=== PATIENT | female | born 1985 | race Caucasian/White ===

== ENCOUNTER → 2018-03-12 11:49 | Outpatient (CLI) | payer MEDICAID, SELFPAY ==
[2018-03-12 15:23] LABS: Chlamydia Trachomatis by PCR Negative (Negative); Neisserai gonorrhoeae by PCR Negative (Negative); Probe Check PASS; Sample Adequacy Control PASS; Specimen Processing Control PASS
[2018-03-19 12:29] LABS: HPV Reflexed? NOT INDICATED
== END ==
PROVIDERS: Visit Provider Obstetrics & Gynecology
DX: Z12.4 Encounter for screening for malignant neoplasm of cervix (principal); Z11.3 Encounter for screening for infections with a predominantly sexual mode of transmission
CPT/HCPCS: 87491; 87591; 88175; G0145

== ENCOUNTER → 2018-04-09 10:28 | Outpatient (CLI) | payer MEDICAID, SELFPAY ==
[2018-04-09 13:50] LABS: Absolute Lymphocyte Count 0.86 X10^3/ul (0.83-4.51); Absolute Neutrophil Count 1.7 X10^3/uL (2.0-7.7); Basophil# 0.01 X10^3/uL; Basophil% 0.3 % (0-1); Color, Urine Yellow (Yellow); Eosinophil# 0.04 X10^3/uL; Eosinophils% 1.4 % (0-5); Glucose, Dipstick Normal (Normal); Hematocrit 35.3 % (37-47); Hemoglobin 11.7 g/dl (12.0-15.0); Ketone-Dipstick Negative (Negative); Leukocyte Esterase-Dipstick Negative /ul (Negative); Lymphocyte # 0.86 X10^3/ul (4.0); Lymphocyte % 29.4 % (19-41); Mean Corp Hgb Conc 33.1 g/gl (32-36); Mean Corpuscular Hgb 29.4 pg (27.0-32.0); Mean Corpuscular Volume 88.7 fL (81-99); Mean Platelet Vol. 9.8 fl (6.2-12.0); Monocyte# 0.29 X10^3/uL; Monocyte% 9.9 % (0-10); Neutrophil # 1.72 X10^3/uL (2.7-7.7); Neutrophil % 58.7 % (47-70); Nitrite-Dipstick Negative (Negative); Occult Blood-Urine Negative /ul (Negative); Platelet Count 286 K/mm3 (150-450); Protein-Dipstick 15 mg/dl (Negative); RBC Distribution Width CV 14.3 % (11.6-14.6); RBC Distribution Width SD 46.7 fl (35.1-43.9); Red Blood Count 3.98 M/mm3 (4.2-5.4); Urine Bilirubin Dipstick Negative (Negative); Urine Clarity Clear (Clear); Urine Urobilinogen Normal (Normal); White Blood Count 2.9 K/mm3 (4.4-11.0)
[2018-04-09 13:55] LABS: POSITIVE COUNT NO; POSITIVE DIFFERENTIAL NO; POSITIVE MORPHOLOGY NO
[2018-04-09 14:23] LABS: Thyroid Stim Hormone (TSH) 1.81 uIU/mL (0.358-3.74)
[2018-04-09 15:01] LABS: HIV - WCH Non-Reactive (Nonreactive); Rubella IgG 159.4 IU/mL
[2018-04-10 09:25] LABS: HEPATITIS B SURFACE AG Negative (Negative); Hep C Antibodies 0.1 s/co ratio (0.0-0.9)
[2018-04-16 00:18] LABS: Prenatal RPR NONREACTIVE (NONREACTIVE)
== END ==
PROVIDERS: Visit Provider Obstetrics & Gynecology
DX: Z34.82 Encounter for supervision of other normal pregnancy, second trimester (principal)
CPT/HCPCS: 36415; 81002; 84443; 85025; 86703; 86762; 86803; 87340

== ENCOUNTER → 2018-05-24 11:34 | Outpatient (CLI) | payer MEDICAID, SELFPAY ==
[2018-05-24 14:33] LABS: AST(SGOT) 14 U/L (15-37); Alanine Aminotransfer ALT/SGPT 18 U/L (13-56); Albumin, Serum 2.7 g/dL (3.2-5.0); Alkaline Phosphatase 71 U/L (45-117); Bilirubin, Direct 0.09 mg/dL (0.00-0.30); Globulin 4.1 g/dL (2.2-4.2); Protein, Total 6.8 g/dL (6.4-8.2)
== END ==
PROVIDERS: Visit Provider Obstetrics & Gynecology
DX: O26.899 Other specified pregnancy related conditions, unspecified trimester (principal); L29.9 Pruritus, unspecified; Z3A.00 Weeks of gestation of pregnancy not specified
CPT/HCPCS: 36415; 80076

== ENCOUNTER → 2018-07-12 10:26 | Outpatient (CLI) | payer MEDICAID, SELFPAY ==
[2018-07-12 13:42] LABS: Hematocrit 28.3 % (37-47); Hemoglobin 8.9 g/dl (12.0-15.0); Mean Corp Hgb Conc 31.4 g/gl (32-36); Mean Corpuscular Hgb 28.5 pg (27.0-32.0); Mean Corpuscular Volume 90.7 fL (81-99); Mean Platelet Vol. 9.6 fl (6.2-12.0); Platelet Count 367 K/mm3 (150-450); RBC Distribution Width CV 12.6 % (11.6-14.6); RBC Distribution Width SD 40.4 fl (35.1-43.9); Red Blood Count 3.12 M/mm3 (4.2-5.4); White Blood Count 5.7 K/mm3 (4.4-11.0)
[2018-07-12 13:44] LABS: Scan Indicated on CBC? Y/N NO
[2018-07-12 13:50] LABS: Glucose Challenge Gest 1H 50g 117 mg/dL (70-140)
== END ==
PROVIDERS: PCP Family Medicine; Visit Provider Obstetrics & Gynecology
DX: Z34.83 Encounter for supervision of other normal pregnancy, third trimester (principal)
CPT/HCPCS: 36415; 82950; 85027

== ENCOUNTER → 2018-08-23 13:16 | Outpatient (CLI) | payer MEDICAID, SELFPAY | PROVIDERS: Visit Provider Obstetrics & Gynecology | DX: Z36.85 Encounter for antenatal screening for Streptococcus B (principal) | CPT/HCPCS: 87081 ==

== ENCOUNTER 2018-09-22 08:25 | Outpatient (CLI) | payer MEDICAID, SELFPAY ==
[2018-09-22 08:59] VITALS: BMI 30.2
[2018-09-22 09:14] LABS: ROM Internal Control Test YES-OK TO RESULT pt. (Internal QC); ROM Patient Test Negative (Negative)
--- NOTE | 2018-09-28 07:12 | OB.TRI.NOTE ---
History of Present Illness Date of Service: 09/22/18 Was patient seen by the physician?: No Reason For Visit: R/O SROM Date of Service: 09/22/18 Final ZAHRA: 09/24/18 Gestational age: 39 wks 5 Days History of Present Illness: 33 yo [id number] female at 39 5/7 wk presents for labor check ? SROM Allergies No Known Allergies Allergy (Verified 09/22/18 09:07) Laboratory Studies: Laboratory Tests 09/22/18 Range/Units 08:45 Vag Amniotic Fld Detect Negative (Negative) NST - FHR Rate Baby A Baseline: 130-140 avg variability Accels to 160s Variables to 90-120 (quick return Variability:: Moderate Accelerations:: 15 x 15 Decelerations:: Variable NST Reactive:: Yes, Appropriate for gestational age FHR Category:: Category I Uterine Activity:: Rare UCs some uterine irritability Impression/Plan 39 5/7 wk NST reactive SROM test NEGATIVE Home. To ofc for PNV and sono to check ISMAEL after released from hospital. Return to hospital if inc s/sx of labor.
--- NOTE | 2018-09-28 07:16 | OB.TRI.HP_ITS ---
History of Present Illness Date of Service: 09/22/18 Was patient seen by the physician?: No Reason For Visit: R/O SROM Date of Service: 09/22/18 Final ZAHRA: 09/24/18 Gestational age: 39 wks 5 Days History of Present Illness: 33 yo [id number] female at 39 5/7 wk presents for labor check ? SROM Allergies No Known Allergies Allergy (Verified 09/22/18 09:07) Laboratory Studies: Laboratory Tests 09/22/18 Range/Units 08:45 Vag Amniotic Fld Detect Negative (Negative) NST - FHR Rate Baby A Baseline: 130-140 avg variability Accels to 160s Variables to 90-120 (quick return Variability:: Moderate Accelerations:: 15 x 15 Decelerations:: Variable NST Reactive:: Yes, Appropriate for gestational age FHR Category:: Category I Uterine Activity:: Rare UCs some uterine irritability Impression/Plan 39 5/7 wk NST reactive SROM test NEGATIVE Home. To ofc for PNV and sono to check ISMAEL after released from hospital. Return to hospital if inc s/sx of labor.
== END 2018-09-22 09:45 | disposition home or self-care (01) ==
PROVIDERS: Obstetrics & Gynecology; Referring Provider Obstetrics & Gynecology; Visit Provider Obstetrics & Gynecology
DX: O47.1 False labor at or after 37 completed weeks of gestation (principal); O76 Abnormality in fetal heart rate and rhythm complicating labor and delivery; Z3A.39 39 weeks gestation of pregnancy
CPT/HCPCS: 59025; 59050; 84112; 99218; G0378

== ENCOUNTER 2018-09-24 06:40 | Inpatient (IN) | payer MEDICAID, SELFPAY ==
[2018-09-24] MEDS: Lactated Ringers 1,000 ML 50 ML IV ×2 (07:08→12:55)
[2018-09-24 07:13] VITALS: BMI 30.2
[2018-09-24 08:02] LABS: Hematocrit 30.7 % (37-47); Hemoglobin 9.6 g/dl (12.0-15.0); Mean Corp Hgb Conc 31.3 g/gl (32-36); Mean Corpuscular Hgb 28.1 pg (27.0-32.0); Mean Corpuscular Volume 89.8 fL (81-99); Mean Platelet Vol. 10.3 fl (6.2-12.0); Platelet Count 437 K/mm3 (150-450); RBC Distribution Width CV 16.6 % (11.6-14.6); Red Blood Count 3.42 M/mm3 (4.2-5.4); White Blood Count 6.4 K/mm3 (4.4-11.0)
[2018-09-24 08:42] LABS: Scan Indicated on CBC? Y/N NO
[2018-09-24] MEDS: 0.9% Saline Lock 10 ML Syringe IV (09:23)
[2018-09-24] MEDS: Oxytocin 30 units/NS 500 ml 30 UNITS/500 ML IV.SOLN IV (09:26)
[2018-09-24] MEDS: Nalbuphine 10 MG/ML Ampul IV (11:04)
--- NOTE | 2018-09-24 11:47 | PCM.PN.BLA ---
Progress Note 40 wk labor SROM Pitocin augmentation S/P Nubain EFM 130-140s avg variability accels. UCs q 6-7 mins CX: last check at approx 9 am 3 cm/70/-2 then A/P: 40 wk early labor after SROM this am at 5:30 continue pitocin watch progress, descent. Anticipate
[2018-09-24] MEDS: fentaNYL-bupivacaine (epidural) 100 ML BAG EPIDURAL (14:30)
[2018-09-24] MEDS: Oxytocin 30 units/NS 500 ml 30 UNITS/500 ML IV.SOLN 334 UNITS IV (16:53)
--- NOTE | 2018-09-24 17:01 | PCM.OB.VAG ---
Vaginal Delivery Maternal Presentation: Active Labor, Spontaneous Rupture of Membranes Amniotic Membrane Rupture Type: Spontaneous at home Rupture of Membrane time: 0530 Amniotic Fluid Description: Lightly stained meconium Final ZAHRA: 09/24/18 Final ZAHRA Source: US <20 weeks Gestational age: 40 Weeks and 0 Days Date of Procedure: 09/24/18 Pre-Operative Diagnosis: 40 wk SROM labor Post-Operative Diagnosis: same Surgery/ Procedure Performed: Spontaneous Vaginal Delivery Type of Anesthesia: Epidural Description of Procedure: of a johns viable female over intact perineum. Head delivered JAYASHREE. No nuchal cord. Shoulders delivered easily. OP and nares bulb suctioned at delivery. to maternal abdomen then with spont cry. Cord clamped x two and cut after infant on maternal abdomen. Dr Nino present for delivery due to light meconium present at OM. PP exam: 2nd deg vaginal and perineal laceration noted. Repaired to hemostatic, intact with 3-0 vicryl No other lacerations noted. Placenta delivered by spont expulsion, expression. 3V normal appearing, intact with trailing membranes. RayTec and needle counts correct x two Pt and infant tolerated delivery well. To recovery, stable condition. Presentation: Vertex, JAYASHREE Placental Delivery Description: Spontaneous, Expressed Placenta Disposition: [facility] Cord Vessel Description: 3 Vessels Cord Entanglement: None Drain: [place] to straight drain Estimated Blood Loss: 200 A gender: Female (1 minute): 8 (5 minute): 9 Episiotomy Description: None Laceration: Midline, Perineal Extension/lac, Vaginal Extension/lac, 2nd degree Medications given after delivery: IV Pitocin Complications: None
--- NOTE | 2018-09-24 17:07 | PCM.DCVAG ---
Discharge Diet: No Restrictions Discharge Activity: May Shower, May Take a Tub Bath May resume sexual activity in: 4-6 weeks Additional Activity Instructions:: Nothing in the vagina for 4-6 weeks. You may return to work/school in 6 weeks. Additional Instructions: If you experience any of the following, contact your healthcare provider. Bleeding that soaks a pad every hour for 2 hours Fever 100.4 or higher Unrelieved abdominal pain Problems urinating (including inability to urinate or burning while urinating). Visual changes Severe headache Flu-like symptoms Pain or redness in one of both of your breasts Pain, warmth, tenderness or swelling in your legs, especially the calf area Frequent nausea and vomiting Symptoms of depression or anxiety If you experience any of the following, call 911 or go to the nearest Emergency Room. Chest pain Problems breathing Seizure activity Partial or complete paralysis of a body part, slurred speech, weakness or drooping of the face, or a sudden inability to walk or hold your balance Allergies/Adverse Reactions: Allergies No Known Allergies Allergy (Verified 09/22/18 09:07) Please Follow Up With: Cynthia John MD - [phone] When: Call to make an appointment with your doctor in 6 weeks. Primary Care Physician: Care Physician,No Primary [Primary Care Provider] - Test Results: Test results from this visit will be discussed in further detail at your follow-up appointment, if applicable. Proposed Discharge Date: 09/26/18
--- NOTE | 2018-09-24 17:08 | DCINST_ITS ---
Discharge Diet: No Restrictions Discharge Activity: May Shower, May Take a Tub Bath May resume sexual activity in: 4-6 weeks Additional Activity Instructions:: Nothing in the vagina for 4-6 weeks. You may return to work/school in 6 weeks. Additional Instructions: If you experience any of the following, contact your healthcare provider. * Bleeding that soaks a pad every hour for 2 hours * Fever 100.4 or higher * Unrelieved abdominal pain * Problems urinating (including inability to urinate or burning while urinating). * Visual changes * Severe headache * Flu-like symptoms * Pain or redness in one of both of your breasts * Pain, warmth, tenderness or swelling in your legs, especially the calf area * Frequent nausea and vomiting * Symptoms of depression or anxiety If you experience any of the following, call 911 or go to the nearest Emergency Room. * Chest pain * Problems breathing * Seizure activity * Partial or complete paralysis of a body part, slurred speech, weakness or drooping of the face, or a sudden inability to walk or hold your balance Allergies/Adverse Reactions: Allergies No Known Allergies Allergy (Verified 09/22/18 09:07) Please Follow Up With: Cynthia John MD - [phone] When: Call to make an appointment with your doctor in 6 weeks. Primary Care Physician: Care Physician,No Primary [Primary Care Provider] - Test Results: Test results from this visit will be discussed in further detail at your follow- up appointment, if applicable. Proposed Discharge Date: 09/26/18
[2018-09-24] MEDS: Oxytocin 30 units/NS 500 ml 30 UNITS/500 ML IV.SOLN 167 UNITS IV (17:23)
[2018-09-24 20:13] VITALS: BP 120/65; PULSE 102; RESP 16; TEMP 36.6; O2SAT 98
[2018-09-25 00:20] VITALS: BP 102/58; PULSE 99; RESP 16; TEMP 36.6; O2SAT 97
[2018-09-25 03:40] VITALS: BP 99/53; PULSE 91; RESP 14; TEMP 36.4; O2SAT 96
[2018-09-25] MEDS: Ibuprofen 600 MG Tablet PO (03:44)
--- NOTE | 2018-09-25 08:23 | PCM.PN.OB ---
Subjective: No complaints this morning other than cramping with breast feeding. Bleeding light. Objective: Afeb VSS - Physical Exam General: Alert, Oriented x3, Cooperative, No apparent distress Lungs: Clear to auscultation, Normal air movement Cardiovascular: Regular rate, Regular Rhythm Abdomen: Soft, Non Tender, Non-Distended, - - Fundus firm nontender Extremities: No edema Skin: No rashes Neurological: Neuro grossly intact Psych/Mental Status: Normal Affect Comment: Lochia light Vital Signs Temp Pulse Resp BP Pulse Ox 97.5 F L 91 14 99/53 L 96 09/25/18 03:40 09/25/18 03:40 09/25/18 03:40 09/25/18 03:40 09/25/18 03:40 Oxygen Delivery Method Room Air Weight: 165 lb Body Mass Index (BMI) 30.2 Intake and Output for Last 24 Hours 09/23/18 09/24/18 09/25/18 23:59 23:59 23:59 Intake Total 2170 / 2170 Output Total 850 / 850 Balance 1320 / 1320 Laboratory Tests Past 24 Hrs 09/24/18 09/24/18 07:08 07:08 WBC 6.4 RBC 3.42 L Hgb 9.6 L Hct 30.7 L MCV 89.8 MCH 28.1 MCHC 31.3 L RDW 16.6 H RDW Differential 53.0 H Plt Count 437 MPV 10.3 Blood Type A POSITIVE Antibody Screen NEGATIVE Medical Necessity - Tobacco Use Smoking Status: Never smoker Assessment/Plan Doing well on PP day#1. She may choose to be discharged later today if baby cleared. Discharge instructions and warnings given.
--- NOTE | 2018-09-25 08:26 | PCM.DC.SUM ---
Discharge Date and Diagnosis Date of Admission: 09/24/18 Date of Discharge: 09/25/18 - Primary Discharge Diagnosis S/P Hospital Course and Treatment Operations: None Procedures: - - Summary of Care Provided: The patient is a 33 year old F admitted with SROM at term. She progressed to FD then pushed to deliver a live without complication. Post course unremarkable. Discharged home on PP day#1. - Physical Exam Vital Signs Temp Pulse Resp BP Pulse Ox 97.5 F L 91 14 99/53 L 96 09/25/18 03:40 09/25/18 03:40 09/25/18 03:40 09/25/18 03:40 09/25/18 03:40 Oxygen Delivery Method Room Air Weight: 165 lb Body Mass Index (BMI) 30.2 Intake and Output for Last 24 Hours 09/23/18 09/24/18 09/25/18 23:59 23:59 23:59 Intake Total 2170 / 2170 Output Total 850 / 850 Balance 1320 / 1320 Laboratory Tests Past 24 Hrs 09/24/18 09/24/18 07:08 07:08 WBC 6.4 RBC 3.42 L Hgb 9.6 L Hct 30.7 L MCV 89.8 MCH 28.1 MCHC 31.3 L RDW 16.6 H RDW Differential 53.0 H Plt Count 437 MPV 10.3 Blood Type A POSITIVE Antibody Screen NEGATIVE Discharge Diet: No Restrictions Discharge Activity: May Shower, May Take a Tub Bath May resume sexual activity in: 4-6 weeks Additional Activity Instructions:: Nothing in the vagina for 4-6 weeks. You may return to work/school in 6 weeks. Call your doctor if you observe: Fever of 101 or Higher, Inability to urinate, Inability to have a bowel movement, Using more than one pad per hour, Shortness of breath, Chest pain, Calf discomfort, Uncontrolled pain Cleanse incision/area with: Soap & Water Primary Care Physician: Care Physician,No Primary [Primary Care Provider] - Please Follow Up With: Cynthia John MD - [phone] When: 6 weeks Disposition: Home Minutes spent on discharge:: 15 Patient Condition:: Good Medical Necessity - Tobacco Use Smoking Status: Never smoker Meaningful Use Info Meaningful Use Diagnoses (Choose all that apply): None applicable
[2018-09-25 10:00] VITALS: BP 101/65; PULSE 97; RESP 16; TEMP 36.3
[2018-09-25] MEDS: Senna/Docusate Sodium 1 Tablet PO (10:31)
[2018-09-25 14:00] VITALS: BP 110/58; PULSE 93; RESP 16; TEMP 36.4
[2018-09-25 18:00] VITALS: BP 105/69; PULSE 94; RESP 16; TEMP 36.2
[2018-09-25 18:55] VITALS: BP 105/69; PULSE 94; RESP 16; TEMP 36.2
--- NOTE | 2018-09-25 19:22 | NURSING ---
1900 Discharged to home with baby. States she wants to go home tonight and feels able to care for herself and her baby.
== END 2018-09-25 19:00 | disposition home or self-care (01) | DRG 560 ==
PROVIDERS: Obstetrics & Gynecology; Admitting Provider Obstetrics & Gynecology; Referring Provider Obstetrics & Gynecology; Visit Provider Obstetrics & Gynecology
DX: O77.0 Labor and delivery complicated by meconium in amniotic fluid (principal); Z3A.40 40 weeks gestation of pregnancy; Z37.0 Single live birth; O70.1 Second degree perineal laceration during delivery; O47.1 False labor at or after 37 completed weeks of gestation; O76 Abnormality in fetal heart rate and rhythm complicating labor and delivery
CPT/HCPCS: 59025; 59050; 84112; 85027; 86850; 86900; 99218; J7120; A4216; G0378

== ENCOUNTER 2018-11-24 12:03 | Day surgery (SDC) | payer MEDICAID, SELFPAY ==
--- NOTE | 2018-11-22 14:18 | HP.PCM_ITS ---
History of Present Illness Date of Admission: 11/22/18 SHILOH BECKMAN Age: 33 Date of : 1985 HISTORY OF PRESENT ILLNESS: On 11/22/2018, Shiloh Beckman, a 33 year old female 4 0 1 0 4, presented for: -- Pre-Op PT is a 33 yo female, G-5 P-4 here today for her preop appt. Pt delivered on 09-24-2018. PT is scheduled to have Laparoscopic Bilateral Salpingectomy done on 11/24/[address] Grier. PTs allergies, medications, and PMH reviewed and updated. dg As above. Here for preop appt prior to planned laparoscopic bilateral salpingectomy No further childbearing desired. EB ALLERGIES: NKDA MEDICATIONS HISTORY: Patient is also takin. No Meds REVIEW OF SYSTEMS: GENERAL - Denies fever, or chills SKIN - Denies skin changes EYES - wears eye glasses EARS - Denies difficulty hearing NOSE - Denies nasal congestion or bleeding MOUTH - Denies sore throat or difficulty swallowing NECK - Denies pain or swelling RESPIRATORY - Denies shortness of breath or wheezing CARDIOVASCULAR - Denies palpitations or chest pain GASTROINTESTINAL - Denies nausea, vomiting, diarrhea, constipation GENITOURINARY - Denies dysuria, frequency of urination, incontinence of urine MUSCULOSKELETAL - Denies joint or muscle pain NEUROLOGICAL - Denies localized numbness or weakness PSYCHIATRIC - Denies depression or anxiety ENDOCRINE - Denies heat or cold intolerance, weight loss or gain HEMATO-IMMUNOLOGIC - Denies excesive bleeding with cuts PAST HISTORY: Breast/Ovarian/Colon Cancers - Denies Infections - Chicken pox Illnesses - none Accidents - None History of Abnormal PAPS - NO Hospitalizations - Childbirth SURGICAL HISTORY: 1. none MENSTRUAL HISTORY: LMP Known?- , LMP - 12/18/17, Age Onset Menarche - 13 PAST PREGNANCIES: Total Pregnancies - 5; Full Term Pregnancies - 4; Premature - 0; Abortions, Induced - 0; Abortions, Spontaneous - 1; Ectopics - 0; Multiple Births - 0; Living Children - 4 SOCIAL HISTORY: Alcohol Use - None Smoking - Never Diet - no special diet Lifestyle - moderate stress lifestyle and Exercise - minimal Seat Belt Use - always Employer - Unemployed Illicit Drug Use - None Sexual Activity - Residence - lives with Place of - [place], [place] Spouse-Sig Other Name - Sam Beckman Spouse-Sig Other Occupation - Finishing Children Name(s) - Florinda, Jenae, Codi, Selena Control - considering PHYSICAL EXAMINATION BP- 120/78 Sitting, Right arm, regular cuff Weight- 150.00 lbs Height- 62.00 inch BMI:27.49 CONSTITUTIONAL - NAD, well nourished, and well developed HEENT - Normocephalic, PERRLA, EOMI NECK - no nuchal rigidity EXTREMITIES - No edema or calf tenderness NEUROLOGICAL - Cranial nerves II-XII grossly intact PSYCHIATRIC - A and O to time, place, person, mood and affect ASSESSMENT: 1. Encounter For Sterilization 2. Other Specified Counseling PLAN BY DIAGNOSIS: 1. Encounter For Sterilization and Other Specified Counseling Reviewed options for surgical sterilization Plans L/S Bilateral salpingectomy R,B,A reviewd. possible decreased risk of ovarian cancer with bilateral salpingectomy All questions answered and consent signed and on chart. Plan for L/S bilateral salpingectomy. RTO in 2 wk for postop incision check. Past Medical History Allergies No Known Allergies Allergy (Verified 11/16/18 16:10) Home Medications: Ambulatory Orders Medication Instructions Recorded Vits [Prenatabs FA] 1 tablet PO DAILY 11/16/18 Smoking Status: Never smoker Tobacco Use: Non-smoker VTE Information - Inpt Only VTE Present on Admission: No VTE Mechan Device Prophylaxis: SCD's - Physical Exam Body Mass Index (BMI) 30.2
[2018-11-22 15:10] LABS: Hematocrit 36.7 % (37-47); Hemoglobin 11.7 g/dl (12.0-15.0); Mean Corp Hgb Conc 31.9 g/gl (32-36); Mean Corpuscular Hgb 27.8 pg (27.0-32.0); Mean Corpuscular Volume 87.2 fL (81-99); Mean Platelet Vol. 9.6 fl (6.2-12.0); Platelet Count 310 K/mm3 (150-450); RBC Distribution Width CV 14.8 % (11.6-14.6); RBC Distribution Width SD 47.2 fl (35.1-43.9); Red Blood Count 4.21 M/mm3 (4.2-5.4); Scan Indicated on CBC? Y/N NO; White Blood Count 4.8 K/mm3 (4.4-11.0)
[2018-11-24 12:23] LABS: Internal QC Validated? YES +Cl - CLEAR BKGD
[2018-11-24 12:29] LABS: Pregnancy, Urine Negative Negative
[2018-11-24 12:33] VITALS: BP 114/71; PULSE 64; RESP 16; TEMP 36.5; O2SAT 98; BMI 26.1
[2018-11-24 12:39] LABS: Hematocrit 39.3 % (37-47); Hemoglobin 12.4 g/dl (12.0-15.0); Mean Corp Hgb Conc 31.6 g/gl (32-36); Mean Corpuscular Hgb 27.7 pg (27.0-32.0); Mean Corpuscular Volume 87.9 fL (81-99); Mean Platelet Vol. 9.6 fl (6.2-12.0); Platelet Count 279 K/mm3 (150-450); RBC Distribution Width CV 14.8 % (11.6-14.6); RBC Distribution Width SD 47.2 fl (35.1-43.9); Red Blood Count 4.47 M/mm3 (4.2-5.4); White Blood Count 3.1 K/mm3 (4.4-11.0)
[2018-11-24 12:44] LABS: Scan Indicated on CBC? Y/N NO
--- NOTE | 2018-11-24 13:30 | PCM.DC.TUB ---
Discharge Diet: No Restrictions Discharge Activity: May not drive while taking narcotic pain medications., May Shower, May Take a Tub Bath Return to work on:: 11/25/18 May resume sexual activity in: 4-6 weeks Weight Bearing Status: Weight bearing as tolerated Additional Activity Instructions:: Ambulate often the next week after surgery. Nothing in the vagina for 5 days. Call your doctor if you observe: Fever of 101 or Higher, Inability to have a bowel movement, Using more than one pad per hour, Uncontrolled pain Change Dressing in (Days):: 7 Remove Dressing in (days):: 7 Cleanse incision/area with: Soap & Water, Keep Dressing Clean & Dry Additional Instructions: Take two Aleve or two Ibuprofen every 6 hr for milder pain. Take the OxyIR for more severe pain. You may resume activity as comfortable on 11/25/18 Allergies/Adverse Reactions: Allergies No Known Allergies Allergy (Verified 11/24/18 12:31) Medications to take at Discharge Vits [Prenatabs FA] 1 tablet PO DAILY 11/16/18 Oxycodone [Oxyir] 5 mg PO Q6H PRN PRN 2 Days #8 tablet 11/24/18 The following prescriptions were given: Oxycodone [Oxyir] 5 mg PO Q6H PRN PRN 2 Days #8 tablet PRN Reason: Mod-Severe Pain (4-10/10) Primary Care Physician: Care Physician,No Primary [Primary Care Provider] - Test Results: Test results from this visit will be discussed in further detail at your follow-up appointment, if applicable. Please Follow Up With: Cynthia John MD - [phone] When: in 2 wk for postop incision check Proposed Discharge Date: 11/24/18
--- NOTE | 2018-11-24 13:34 | DCINST_ITS ---
Discharge Diet: No Restrictions Discharge Activity: May not drive while taking narcotic pain medications., May Shower, May Take a Tub Bath Return to work on:: 11/25/18 May resume sexual activity in: 4-6 weeks Weight Bearing Status: Weight bearing as tolerated Additional Activity Instructions:: Ambulate often the next week after surgery. Nothing in the vagina for 5 days. Call your doctor if you observe: Fever of 101 or Higher, Inability to have a bowel movement, Using more than one pad per hour, Uncontrolled pain Change Dressing in (Days):: 7 Remove Dressing in (days):: 7 Cleanse incision/area with: Soap & Water, Keep Dressing Clean & Dry Additional Instructions: Take two Aleve or two Ibuprofen every 6 hr for milder pain. Take the OxyIR for more severe pain. You may resume activity as comfortable on 11/25/18 Allergies/Adverse Reactions: Allergies No Known Allergies Allergy (Verified 11/24/18 12:31) Medications to take at Discharge Vits [Prenatabs FA] 1 tablet PO DAILY 11/16/18 Oxycodone [Oxyir] 5 mg PO Q6H PRN PRN 2 Days #8 tablet 11/24/18 The following prescriptions were given: Oxycodone [Oxyir] 5 mg PO Q6H PRN PRN 2 Days #8 tablet PRN Reason: Mod-Severe Pain (4-10/10) Primary Care Physician: Care Physician,No Primary [Primary Care Provider] - Test Results: Test results from this visit will be discussed in further detail at your follow- up appointment, if applicable. Please Follow Up With: Cynthia John MD - [phone] When: in 2 wk for postop incision check Proposed Discharge Date: 11/24/18
--- NOTE | 2018-11-24 13:40 | OP.PCM_ITS ---
Report of Operation Date of Procedure: 11/24/18 Pre-Operative Diagnosis: sterilization request Post-Operative Diagnosis: same Surgery/Procedure Performed:: Laparoscopic bilateral salpingectomy Description of Surgical Findings:: Findings; Normal appearing, retroverted uterus. Fallopian tubes and ovaries are WNL. Gross inspection of bowel, omentum. liver edge also WNL. photos were taken of the uterus and ovaries after bilateral salpingectomy, and of the RUQ / liver edge resource coordinator: Cheryl Gordon CRNA Type of Anesthesia:: General Anesthesiologist: January Cintron CRNA Specimen's removed: bilateral fallopian tubes Drains: Red [place] prior to case Estimated Blood Loss (mL): minimal Fluids Replaced: LR Description of Procedure: Narrative account: After the risks, benefits, alternatives of procedure had been reviewed with the patient, informed consent was obtained. The patient was taken back to the Operating room with an IV running. she was positioned on the operating table in dorsal supine position, where she was given general anesthesia. Once asleep she was repositioned to the dorsal lithotomy position and prepped and draped in the usual sterile fashion. A red [place] catheter was used to drain the bladder p rior to initiating the case. A single toothed tenaculum and Brennen cannula were placed into the cervix to allow manipulation of the uterus and cervix during the case. Attention was then turned to the anterior abdominal wall where 0.25 % Marcaine with epinephrine was instilled at the suprapubic and infraumbilical skin and at a point midway between in the midline. Skin incisions were then created in the midline at the suprapubic skin and at the infraumbilical skin and midway between the two. While maintaining upward traction of the anterior abdominal wall a Veress needle was inserted through the umbilical incision into the peritoneal cavity. There was free drop of saline, low opening pressure and free flow of CO2 noted. Once the intraabdominal pressure had reached 15 mm of mercury the Veress needle was removed and a bladeless 5 mm trocar was placed through infraumbilical skin incision into the peritoneal cavity. Correct placement was confirmed using the scope. Under direct visualization then with the patient in Trendelenburg position, a bladeless 5 mm trocar was inserted in through suprapubic skin incision into the peritoneal cavity and at a point midway between the infraumbilical and suprapubic trocars. The uterus as retroverted and both ovaries and fallopian tubes were WNL. The R fallopian tube was grasped and retracted medially and using a LigaSure device the fallopian tube was excised from the ovary and mesosalpinx. Excellent hemostasis was noted at the excision site. The R fallopian tube was brought through the suprapubic trocar and set aside for later pathology review. In a similar manner the L fallopian tube was grasped and retracted medially and the fallopian tube was excised and removed from the abdominal cavity through the suprapubic trochar. The Fallopian tubes were sent to pathology. Excellent hemostasis was noted by visualization of the pelvis, ovaries, and remaining mesosalpinx. Photos were taken of the uterus and bilateral remaining ovaries and of the RUQ and liver edge. At this point the the procedure was terminated. The pneumoperitoneum was reduced and the instruments and trocars were removed from he the anterior abd ominal wall skin. The skin incisions were closed with 4-0 Monocryl in a subcuticular fashion. Dermabond and OpSites were applied to the skin. The Single toothed tenaculum and Brennen cannula were removed from the vagina. The patient was returned to dorsal supine position. She was awakened from general anesthesia. She was transferred to the recovery room bed in stable condition after tolerating the procedure well. Sponge, lap, needle and instrument counts were correct x two. Medications given preop and intraoperatively included: 10 cc of 1/2 % Marcaine with epinephrine --used as a subcutaneous block and Toradol 30 mg IV x one. For a complete listing of medications given preop and intraop , please see the anesthesia record. - Complications none - Admit VTE Documentation VTE Present on Admission: No VTE Mechan Device Prophylaxis: SCD's
--- NOTE | 2018-11-24 13:40 | FALS_PTH ---
PATIENT: JULIO TATE LOC: [facility] U#:[id number] AGE/SX: 33/F ROOM: RE11/24/[address]: Dr. Cynthia John MD : 1985 BED: DIS: 11/24/2018 SPEC #: [id number] RECD: 11/25/18 07:22 STATUS: BO CHINO #: [id number] JULY: 11/24/18 13:[address]: Cynthia John DEPT: SURGICAL PATHOLOGY RECD BY: Jeff Ryan ENTERED: 11/25/18 11:19 SP TYPE: FALL TUBES OTHR DR: No Primary Care Phys Tissues: Fallopian tube Procedures: Surgery Specimen Level II HEADER OPERATION: Laparoscopic bilateral salpingectomy PRE-OP DIAGNOSIS: Desire for sterilization TISSUE SUBMITTED: Bilateral fallopian tubes MICROSCOPIC DIAGNOSIS Bilateral fallopian tubes, salpingectomy: Bilateral fallopian tubes including fimbrial ends, no pathologic diagnosis. KUSUM:michelle 11/26/18 MICROSCOPIC DESCRIPTION Slides are reviewed. GROSS DESCRIPTION Received is one container labeled with the patient's name and designated bilateral fallopian tubes. The specimen consists of two fallopian tubes with an average length of 5.5 cm and has an average diameter of 0.6 cm. Both fallopian tubes have normal fimbriated ends. No mass lesions are identified. Mental Tester sections are submitted in two cassettes as follows: 1 - one fallopian tube, 2 - the other fallopian tube. / AM:[email or web address] 11/25/18 TC:4 CPT: 52804 x2
[2018-11-24] MEDS: Bupiv/Epi 0.5% Mpf 30 ML Vial (13:45)
[2018-11-24 14:18] VITALS: BP 114/71; BP 119/66; PULSE 92; RESP 16; TEMP 36.7; O2SAT 94
[2018-11-24 14:30] VITALS: BP 114/71; BP 98/77; PULSE 82; RESP 16; O2SAT 100
[2018-11-24 14:45] VITALS: BP 114/71; BP 118/81; PULSE 70; RESP 16; O2SAT 100
[2018-11-24 15:00] VITALS: BP 114/71; BP 121/77; PULSE 64; RESP 16; TEMP 36.3; O2SAT 97
[2018-11-24 16:07] VITALS: BP 114/71; BP 123/77; PULSE 56; RESP 16; TEMP 36.4; O2SAT 100
== END 2018-11-24 16:15 | disposition home or self-care (01) ==
LOC: SDC 12:04 → AC 12:04
PROVIDERS: Anesthesiology; Referring Provider Obstetrics & Gynecology; Visit Provider Obstetrics & Gynecology
PROC: (CPT 58661; principal; 2018-11-24 13:25)
DX: Z30.2 Encounter for sterilization (principal); N85.4 Malposition of uterus
CPT/HCPCS: 00840; 58661; 36415; 81025; 85027; 88302; J7120; J2405